=== PATIENT | female | born 1990 | race Two or more races ===

== ENCOUNTER 2016-07-13 16:33 | Emergency (ER) | payer OTHER ==
[2016-07-13] MEDS ORDERED: PROPARACAINE HCL 0.5% 300 GTTS/BOT SOLN.DROP ONE (16:39)
[2016-07-13] MEDS ORDERED: CETIRIZINE HCL 10 MG TABLET PO ONE (17:30)
== END 2016-07-13 17:45 | disposition home or self-care (01) ==
LOC: ED 16:33
DX: H10.11 Acute atopic conjunctivitis, right eye (principal); H11.421 Conjunctival edema, right eye
CPT/HCPCS: 99283 ×2; A9270 ×2